=== PATIENT | male | born 2000 | race Caucasian/White ===

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

== ENCOUNTER 2020-08-28 00:14 | Emergency (ER) | payer SELFPAY ==
[2020-08-28] MEDS ORDERED: IPRATROPIUM/ALBUTEROL 0.5-2.5 MG/3 ML AMPUL NEB ONE (00:32)
[2020-08-28] MEDS ORDERED: DEXAMETHASONE SOD PHOS INJ 10 MG/1 ML VIAL IM ONE (00:32)
--- NOTE | 2020-08-28 00:34 | ER Document Report ---
ED Medical Screen (RME) - General Chief Complaint: Nasal Congestion Stated Complaint: TROUBLE BREATHING, COUGH, HEADACHE Time Seen by Provider: 08/28/20 00:20 Primary Care Provider: LUIS MANUEL RO MD [Primary Care Provider] - Follow up as needed Notes: Patient is a 20-year-old male with a history of asthma presents emergency department with shortness of breath, runny nose, nasal congestion, and a cough that started about 3 days ago. States that he has been using his albuterol inhaler at home, but has had little relief of his symptoms. Exam: Expiratory wheezes noted in the right lung espinoza. I have greeted and performed a rapid initial assessment of this patient. A comprehensive ED assessment and evaluation of the patient, analysis of test results and completion of medical decision making process will be conducted by an additional ED providers. TRAVEL OUTSIDE OF THE [place] IN LAST 30 DAYS: No - Related Data Allergies/Adverse Reactions: No Known Allergies Allergy (Verified 08/28/20 00:25) Past Medical History - Social History Chew tobacco use (# tins/day): No Frequency of alcohol use: None Drug Abuse: None Pulmonary Medical History: Reports: Hx Asthma Renal/ Medical History: Denies: Hx Peritoneal Dialysis Past Surgical History: Reports: Other Physical Exam - Vital signs Vitals: Temp Pulse Resp BP Pulse Ox 97.9 F 92 18 140/85 H 100 08/28/20 00:08/28/20 00:08/28/20 00:29 08/28/20 00:29 08/28/20 00:29 Course - Vital Signs Vital signs: Temp Pulse Resp BP Pulse Ox 97.9 F 92 18 140/85 H 100 08/28/20 00:08/28/20 00:08/28/20 00:29 08/28/20 00:08/28/20 00:29 Doctor's Discharge - Discharge Referrals: LUIS MANUEL RO MD [Primary Care Provider] - Follow up as needed
--- NOTE | 2020-08-28 01:24 | ER Document Report ---
ED General - General Chief Complaint: Nasal Congestion Stated Complaint: TROUBLE BREATHING, COUGH, HEADACHE Time Seen by Provider: 08/28/20 00:20 Primary Care Provider: LUIS MANUEL RO MD [Primary Care Provider] - Follow up as needed Notes: Patient is a 20-year-old male who comes emergency department for chief complaint of cough, sneezing, nasal congestion, sore throat, wheezing. He has a history of asthma. Symptoms started 3 days ago and have worsened in regards to the cough and wheezing today. He states he was using his albuterol inhaler at home but did not have any improvement of his symptoms. He denies fever. He states he has been exposed to his girlfriend and her mom who are both sick with similar symptoms. They have not been tested for COVID-19 and the patient has not neither. Patient denies smoking, denies any past medical history other than asthma. No other complaints reported including chest pain, headache, nausea/vomiting, abdominal pain, flank pain. TRAVEL OUTSIDE OF THE [place] IN LAST 30 DAYS: No - Related Data Allergies/Adverse Reactions: No Known Allergies Allergy (Verified 08/28/20 00:25) Past Medical History - General Information source: Patient - Social History Smoking Status: Never Smoker Chew tobacco use (# tins/day): No Frequency of alcohol use: None Drug Abuse: None Lives with: Family Family History: Reviewed & Not Pertinent Pulmonary Medical History: Reports: Hx Asthma Renal/ Medical History: Denies: Hx Peritoneal Dialysis Past Surgical History: Reports: Other Review of Systems - Review of Systems Constitutional: No symptoms reported EENT: See HPI Cardiovascular: No symptoms reported Respiratory: See HPI Gastrointestinal: No symptoms reported Genitourinary: No symptoms reported Male Genitourinary: No symptoms reported Musculoskeletal: No symptoms reported Skin: No symptoms reported Hematologic/Lymphatic: No symptoms reported Neurological/Psychological: No symptoms reported Physical Exam - Vital signs Vitals: Temp Pulse Resp BP Pulse Ox 97.9 F 92 18 140/85 H 100 08/28/20 00:29 08/28/20 00:29 08/28/20 00:29 08/28/20 00:29 08/28/20 00:29 - Notes Notes: GENERAL: Alert, interacts well. No acute distress. HEAD: Normocephalic, atraumatic. EYES: Pupils equal, round, and reactive to light. Extraocular movements intact. ENT: Oral mucosa moist, tongue midline. Oropharynx with mild erythema but no tonsillar hypertrophy, exudates, or signs of peritonsillar abscess. Airway patent. Mild nasal congestion noted, sinuses non-tender, ear canals unremarkable, TM's intact. NECK: Full range of motion. Supple. Trachea midline. No lymphadenopathy. LUNGS: Clear to auscultation bilaterally, no wheezes, rales, or rhonchi. No respiratory distress. Non-tender chest wall. HEART: Regular rate and rhythm. No murmur ABDOMEN: Soft, non-tender. Non-distended. EXTREMITIES: Moves all 4 extremities spontaneously. No edema, normal radial and dorsalis pedis pulses bilaterally. No cyanosis. BACK: no cervical, thoracic, lumbar midline tenderness. No saddle anesthesia, normal distal neurovascular exam. Moves all extremities in full range of motion. NEUROLOGICAL: Alert and oriented x3. Normal speech. Cranial nerves II through XII grossly intact. Strength 5/5 in all extremities. PSYCH: Normal affect, normal mood. SKIN: Warm, dry, normal turgor. No rashes or lesions noted. Course - Re-evaluation Re-evalutation: Triage provider reported that patient had expiratory wheezing on her exam, however by the time I evaluated the patient he had received the DuoNeb treatments and his wheezing is completely gone. Patient states he feels much better. Patient has some nasal congestion, minimal erythema the posterior pharynx, however his evaluation is completely unremarkable otherwise. No fever, no hypoxia, no signs of distress. Chest x-ray reviewed and negative, influenza and strep are negative, COVID-19 is pending. Provided with spacer, inhaler refill, steroids, discussed COVID-19 testing and quarantine, discussed follow-up and return precautions. Patient states understanding and agreement. Stable and well-appearing at time of discharge. - Vital Signs Vital signs: Temp Pulse Resp BP Pulse Ox 98.0 F 98 17 121/80 99 08/28/20 03:04 08/28/20 03:04 08/28/20 03:04 08/28/20 03:04 08/28/20 03:04 Discharge - Discharge Clinical Impression: Wheezing, Person under investigation for COVID-19 Upper respiratory infection Qualifiers: URI type: unspecified URI Qualified Code(s): J06.9 - Acute upper respiratory infection, unspecified Asthma exacerbation Qualifiers: Asthma severity: mild Asthma persistence: intermittent Qualified Code(s): J45.21 - Mild intermittent asthma with (acute) exacerbation Condition: Stable Disposition: HOME, SELF-CARE Additional Instructions: Your chest x-ray is normal, your influenza and strep tests are negative, your COVID-19 test is pending and you will be contacted with these results and additional instructions. Please quarantine while you await your results. You have been given steroids in the emergency department, this should last around 3 days, if you still have cough/wheezing symptoms after 3 days fill and complete the steroid taper prescribed. Use your albuterol inhaler if needed with the spacer. You can take additional [id number] medications if desired. Follow-up with primary care for additional management. Return if you worsen including difficulty breathing, spiking fever, or any other concerning or worsening symptoms. Prescriptions: Prednisone [Deltasone 10 mg Tablet] 10 mg PO ASDIR PRN #21 tablet PRN Reason: Albuterol Sulfate [Proair HFA Inhalation Aerosol 8.5 gm MDI] 2 puff IH Q4H PRN #1 mdi PRN Reason: Forms: Return to Work Referrals: LUIS MANUEL RO MD [Primary Care Provider] - Follow up as needed
--- NOTE | 2020-08-28 01:46 | RADIOLOGY REPORT (SQ) ---
CLINICAL HISTORY: cough; congestion; hx of asthma COMPARISON: None. 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 Lungs are clear without consolidation, atelectasis, mass or edema. There is no pleural effusion. There is no pneumothorax. There are no acute osseous findings. IMPRESSION: Clear lungs.
[2020-08-28 02:27] LABS: A TYPE INFLUENZA AG NEGATIVE (NEGATIVE); B INFLUENZA AG NEGATIVE (NEGATIVE)
[2020-08-28 03:07] VITALS: BP 121/80
== END 2020-08-28 03:07 | disposition home or self-care (01) ==
LOC: ER 00:14
DX: J45.21 Mild intermittent asthma with (acute) exacerbation (principal); J06.9 Acute upper respiratory infection, unspecified; R09.81 Nasal congestion; R51.9 Headache, unspecified; Z20.828 Contact with and (suspected) exposure to other viral communicable diseases
CPT/HCPCS: 94640; 99284; 96372; 87070; 87880; 87635; 87804; 71045; J1100; C9803